=== PATIENT | male | born 1995 | race Caucasian/White ===

== ENCOUNTER 2017-04-07 12:31 | Emergency (ER) | payer BC ==
[2017-04-07] MEDS ORDERED: SODIUM CHLORIDE 0.9% 1,000 ML IV STA ×2 (13:56)
[2017-04-07 14:21] LABS: Basophils % (A) 1 %; CH 34.3; CHCM 34.8; Eosinophils # (A) 0.1 k/uL (0-0.7); Eosinophils % (A) 1 %; HCT 44.2 % (39.0-53.0); HDW 2.36; HGB 14.7 gm/dL (13.0-17.5); Luc # (Auto) 0.13; Luc % (Auto) 2; Lymphocytes % (A) 33 %; MCH 32.9 pg (25.0-35.0); MCHC 33.2 g/dL (31.0-37.0); Mean Platelet Volume 9.5; Monocytes # (A) 0.4 k/uL (0-1.0); Monocytes % (A) 7 %; Neutrophils # (A) 3.4 k/uL (1.3-7.7); Neutrophils % (A) 56 %; RBC 4.46 m/uL (4.30-5.90); RDW 13.3 % (11.5-15.5); WBC (Perox) 6.23
[2017-04-07 14:29] LABS: ALT 40 U/L (21-72); AST 33 U/L (17-59); Alkaline Phosphatase 49 U/L (38-126); Anion Gap 11 mmol/L; Blood Urea Nitrogen 11 mg/dL (9-20); Calcium 9.5 mg/dL (8.4-10.2); Carbon Dioxide 25 mmol/L (22-30); Chloride 104 mmol/L (98-107); Glucose 72 mg/dL (74-99); Non-African American GFR(MDRD) >60 (>60 ml/min/1.73 sqM); Potassium 4.3 mmol/L (3.5-5.1); Sodium 140 mmol/L (137-145); Total Bilirubin 2.2 mg/dL (0.2-1.3); Total Protein 7.4 g/dL (6.3-8.2)
[2017-04-07] MEDS ORDERED: RX INFO: IV CONTRAST WAS GIVEN 1 EACH MISC MISCELLANE PRN (14:33)
--- NOTE | 2017-04-07 14:33 | ED ---
General Adult HPI - General Chief complaint: Abdominal Pain Stated complaint: Abd Pain Time Seen by Provider: 04/07/17 13:51 Source: patient, RN notes reviewed Mode of arrival: wheelchair Limitations: no limitations - History of Present Illness Initial comments: Patient is a 22-year-old male who presents emergency room today with chief complaint of right sided dental pain over the last 3 days. He does admit that he went to local [facility] in [place]. Patient does admit that he had a CAT scan obtained and he was told that his appendix was slightly inflamed. States he was discharged home to follow up his family doctor. States she's been unable to see his family doctor but pain increased today. Patient admits some nausea. She currently rates his pain 5/10. Denies any other questions or symptoms currently. Patient denies any recent fever, chills, shortness of breath , chest pain, back pain, nausea or vomiting, numbness or tingling, dysuria or hematuria, constipation or diarrhea, headaches or visual changes, or any other complaints. - Related Data Home Medications Medication Instructions Recorded Confirmed Omeprazole 20 mg PO DAILY 04/07/17 04/07/17 Previous Rx's Medication Instructions Recorded Ibuprofen [Motrin] 600 mg PO Q6HR PRN #20 day 04/07/17 Ondansetron Odt [Zofran ODT] 4 mg PO Q8HR PRN #20 tab 04/07/17 Allergies Allergy/AdvReac Type Severity Reaction Status Date / Time erythromycin base Allergy Rash/Hives Verified 04/07/17 13:41 [From Pediazole] Penicillins Allergy Rash/Hives Verified 04/07/17 13:41 sulfisoxazole Allergy Rash/Hives Verified 04/07/17 13:41 [From Pediazole] Review of Systems ROS Statement: Those systems with pertinent positive or pertinent negative responses have been documented in the HPI. ROS Other: All systems not noted in ROS Statement are negative. Past Medical History Past Medical History: Asthma, GERD/Reflux Additional Past Medical History / Comment(s): SVT, "SPORTS INDUCED ASTHMA-HAS BEEN A PROBLEM SINCE AGE 14". USED TO TAKE OMPERAZOLE FOR GERD NOW JUST USES TUMS. MIGRAINES, IBA, UTI. History of Any Multi-Drug Resistant Organisms: None Reported Past Surgical History: Cholecystectomy, Orthopedic Surgery Additional Past Surgical History / Comment(s): RT KNEE SX"SCRAPPED THE BONE" Past Anesthesia/Blood Transfusion Reactions: No Reported Reaction Past Psychological History: No Psychological Hx Reported Smoking Status: Never smoker Past Alcohol Use History: None Reported, Occasional Past Drug Use History: Marijuana - Past Family History Mother Family Medical History: No Reported History Father Family Medical History: Hypertension General Exam - General Exam Comments Initial Comments: General: The patient is awake and alert, in no distress, and does not appear acutely ill. Eye: Pupils are equal, round and reactive to light, extra-ocular movements are intact. No nystagmus. There is normal conjunctiva bilaterally. No signs of icterus. Ears, nose, mouth and throat: There are moist mucous membranes and no oral lesions. Neck: The neck is supple, there is no tenderness or JVD. Cardiovascular: There is a regular rate and rhythm. No murmur, rub or gallop is appreciated. Respiratory: Lungs are clear to auscultation, respirations are non-labored, breath sounds are equal. No wheezes, stridor, rales, or rhonchi. Gastrointestinal: Normal appearance of the abdomen. Normal bowel sounds. Soft on palpation. Patient does have tenderness in the right lower quadrant. No rebound or guarding. No CVA tenderness. Musculoskeletal: Normal ROM, no tenderness. Strength 5/5. Sensation intact. Pulses equal bilaterally 2+. Neurological: A&O x 3. CN II-XII intact, There are no obvious motor or sensory deficits. Coordination appears grossly intact. Speech is normal. Skin: Skin is warm and dry and no rashes or lesions are noted. Psychiatric: Cooperative, appropriate mood & affect, normal judgment. Limitations: no limitations Course Vital Signs 04/07/17 12:34 Temperature 98.0 F Pulse Rate 63 Respiratory 14 Rate Blood Pressure 121/72 O2 Sat by Pulse 99 Oximetry Medical Decision Making - Medical Decision Making The patient's CT reviewed does show 1. Appendix could not be visualized. No dilated tubular fluid-filled structure identified in the right lower quadrant to help support acute appendicitis at this time. 2. Numerous are not enlarged and borderline to mildly enlarged mesenteric and retroperitoneal lymph nodes. These measures up to 7 mm. This is probably reactive/postinflammatory. 3. Sigmoid wall thickening of the bladder could be due to under distention or cystitis. Patient's urinalysis shows no evidence of infection. He is asymptomatic for any urinary symptoms. Patient's resting comfortably here the emergency room does not need any pain medication. Patient report from The hospital was reviewed stating on a CAT scan possible pancreatitis. His enzymes were negative from that visit and are negative and here today. Patient at this times resting comfortably. Will be discharged home advised follow family doctor over the next 2 days. Advised to increase oral fluids use anti- inflammatories for pain along with nausea medication as needed for his symptoms. - Lab Data Result diagrams: 04/07/17 13:10 04/07/17 13:10 Lab Results 04/07/17 04/07/17 04/07/17 Range/Units 13:10 13:10 13:10 WBC 6.0 (3.8-10.6) k/uL RBC 4.46 (4.30-5.90) m/uL Hgb 14.7 (13.0-17.5) gm/dL Hct 44.2 (39.0-53.0) % MCV 99.0 (80.0-100.0) fL MCH 32.9 (25.0-35.0) pg MCHC 33.2 (31.0-37.0) g/dL RDW 13.3 (11.5-15.5) % Plt Count 175 (150-450) k/uL Neutrophils % 56 % Lymphocytes % 33 % Monocytes % 7 % Eosinophils % 1 % Basophils % 1 % Neutrophils # 3.4 (1.3-7.7) k/uL Lymphocytes # 2.0 (1.0-4.8) k/uL Monocytes # 0.4 (0-1.0) k/uL Eosinophils # 0.1 (0-0.7) k/uL Basophils # 0.0 (0-0.2) k/uL PT 10.7 (9.0-12.0) sec INR 1.1 (<1.2) APTT 24.4 (22.0-30.0) sec Sodium 140 (137-145) mmol/L Potassium 4.3 (3.5-5.1) mmol/L Chloride 104 (98-107) mmol/L Carbon Dioxide 25 (22-30) mmol/L Anion Gap 11 mmol/L BUN 11 (9-20) mg/dL Creatinine 0.69 (0.66-1.25) mg/dL Est GFR (MDRD) Af Amer >60 (>60 ml/min/1.73 sqM) Est GFR (MDRD) Non-Af >60 (>60 ml/min/1.73 sqM) Glucose 72 L (74-99) mg/dL Plasma Lactic Acid Deo (0.7-2.0) mmol/L Calcium 9.5 (8.4-10.2) mg/dL Total Bilirubin 2.2 H (0.2-1.3) mg/dL AST 33 (17-59) U/L ALT 40 (21-72) U/L Alkaline Phosphatase 49 (38-126) U/L Total Protein 7.4 (6.3-8.2) g/dL Albumin 4.7 (3.5-5.0) g/dL Amylase (30-110) U/L Lipase (23-300) U/L Urine Color Urine Appearance (Clear) Urine pH (5.0-8.0) Ur Specific Earp (1.001-1.035) Urine Protein (Negative) Urine Glucose (UA) (Negative) Urine Ketones (Negative) Urine Blood (Negative) Urine Nitrite (Negative) Urine Bilirubin (Negative) Urine Urobilinogen (<2.0) mg/dL Ur Leukocyte Esterase (Negative) 04/07/17 04/07/17 04/07/17 Range/Units 13:10 14:10 14:52 WBC (3.8-10.6) k/uL RBC (4.30-5.90) m/uL Hgb (13.0-17.5) gm/dL Hct (39.0-53.0) % MCV (80.0-100.0) fL MCH (25.0-35.0) pg MCHC (31.0-37.0) g/dL RDW (11.5-15.5) % Plt Count (150-450) k/uL Neutrophils % % Lymphocytes % % Monocytes % % Eosinophils % % Basophils % % Neutrophils # (1.3-7.7) k/uL Lymphocytes # (1.0-4.8) k/uL Monocytes # (0-1.0) k/uL Eosinophils # (0-0.7) k/uL Basophils # (0-0.2) k/uL PT (9.0-12.0) sec INR (<1.2) APTT (22.0-30.0) sec Sodium (137-145) mmol/L Potassium (3.5-5.1) mmol/L Chloride (98-107) mmol/L Carbon Dioxide (22-30) mmol/L Anion Gap mmol/L BUN (9-20) mg/dL Creatinine (0.66-1.25) mg/dL Est GFR (MDRD) Af Amer (>60 ml/min/1.73 sqM) Est GFR (MDRD) Non-Af (>60 ml/min/1.73 sqM) Glucose (74-99) mg/dL Plasma Lactic Acid Deo 0.6 L (0.7-2.0) mmol/L Calcium (8.4-10.2) mg/dL Total Bilirubin (0.2-1.3) mg/dL AST (17-59) U/L ALT (21-72) U/L Alkaline Phosphatase (38-126) U/L Total Protein (6.3-8.2) g/dL Albumin (3.5-5.0) g/dL Amylase 55 (30-110) U/L Lipase 62 (23-300) U/L Urine Color Yellow Urine Appearance Clear (Clear) Urine pH 6.5 (5.0-8.0) Ur Specific Earp 1.014 (1.001-1.035) Urine Protein Negative (Negative) Urine Glucose (UA) Negative (Negative) Urine Ketones Negative (Negative) Urine Blood Negative (Negative) Urine Nitrite Negative (Negative) Urine Bilirubin Negative (Negative) Urine Urobilinogen <2.0 (<2.0) mg/dL Ur Leukocyte Esterase Negative (Negative) Disposition Clinical Impression: Mesenteric adenitis Disposition: HOME SELF-CARE Condition: Good Instructions: Mesenteric Adenitis (ED) Additional Instructions: Please use medication as discussed. Please follow-up with family doctor in the next 2 days of symptoms have not improved. Please return to emergency room if the symptoms increase or worsen or for any other concerns. Prescriptions: Ibuprofen [Motrin] 600 mg PO Q6HR PRN #20 day PRN Reason: Pain Ondansetron Odt [Zofran ODT] 4 mg PO Q8HR PRN #20 tab PRN Reason: Nausea Referrals: Harinder Helms MD [Primary Care Provider] - 1-2 days Time of Disposition: 16:06
[2017-04-07 14:37] LABS: INR 1.1 (<1.2); Partial Thromboplastin Time 24.4 sec (22.0-30.0); Prothrombin Time 10.7 sec (9.0-12.0)
[2017-04-07 15:02] LABS: Appearance,Urine Clear (Clear); Bilirubin,Urine Negative (Negative); Glucose,Urine (UA) Negative (Negative); Ketones,Urine Negative (Negative); Leukocyte Esterase,Urine Negative (Negative); Nitrite,Urine Negative (Negative); PH, Urine 6.5 (5.0-8.0); Protein,Urine Negative (Negative); Specific Gravity,Urine 1.014 (1.001-1.035); UA Billing (MACRO vs. MICRO) CHEM; Urobilinogen,Urine <2.0 mg/dL (<2.0)
--- NOTE | 2017-04-07 15:22 | CT ---
EXAMINATION TYPE: CT abdomen pelvis w con DATE OF EXAM: 04/07/2017 COMPARISON: NONE HISTORY: 22-year-old male Stomach pain and chest pain TECHNIQUE: Contiguous axial scanning of the abdomen and pelvis following administration of 100 ml Omn ipaque 300 IV contrast. Delayed images through the kidneys and coronal/sagittal reconstructions perf ormed. CT DLP: 495.8 mGycm Automated exposure control for dose reduction was used. FINDINGS: Heart is normal size without pericardial effusion. Lung bases clear without pleural effusion. No focal liver lesion or biliary ductal dilatation. Cholecystectomy clips are present. Adrenal glands, spleen, kidneys, and pancreas show no gross abnormality. Numerous scattered small mesenteric lymph nodes are present. Additional numerous small retroperitoneal lymph nodes are present. Some borderline to mildly enlarged measuring up to 7 mm. No dilated small bowel, free fluid, or free air. Mild overall stone burden. The appendix is not discretely visualized. No abnormally dilated tubular fluid-filled structure is id entified in the right lower quadrant Bladder not distended. There appears to be some mild circumferential bladder wall thickening which ma y relate to nondistention. No abnormal fluid collection in the pelvis. Bones: No osseous destructive process. IMPRESSION: 1. APPENDIX COULD NOT BE VISUALIZED. NO DILATED TUBULAR FLUID-FILLED STRUCTURE IDENTIFIED IN THE RIGH T LOWER QUADRANT TO HELP SUPPORT ACUTE APPENDICITIS AT THIS TIME. 2. NUMEROUS NONENLARGED AND BORDERLINE TO MILDLY ENLARGED MESENTERIC AND RETROPERITONEAL LYMPH NODES. THESE MEASURE UP TO 7 MM. THIS IS PROBABLY REACTIVE/POST INFLAMMATORY. CLINICALLY CORRELATE. 3. CIRCUMFERENTIAL WALL THICKENING OF THE BLADDER COULD BE DUE TO UNDERDISTENTION OR CYSTITIS.
[2017-04-07 15:39] LABS: Amylase 55 U/L (30-110)
[2017-04-07 16:31] VITALS: BP 122/68; PULSE 86; RESP 16; TEMP 98.2
== END 2017-04-07 16:32 | disposition home or self-care (01) ==
LOC: EC 12:31
DX: I88.0 Nonspecific mesenteric lymphadenitis (principal); K08.89 Other specified disorders of teeth and supporting structures; R11.0 Nausea; K21.9 Gastro-esophageal reflux disease without esophagitis; Z79.899 Other long term (current) drug therapy; Z88.0 Allergy status to penicillin; Z88.1 Allergy status to other antibiotic agents; Z90.49 Acquired absence of other specified parts of digestive tract
CPT/HCPCS: 99284 ×2; 96360 ×2; 96361 ×2; 36415; 80053; 82150; 83605; 83690; 85025; 85610; 85730; 81003; 87040; 74177; Q9967